=== PATIENT | male | born 2000 | race Caucasian/White ===

== ENCOUNTER 2022-06-10 00:26 | Emergency (ER) | payer OTHER ==
[~2022-06-10] VITALS: Ht 177.8 cm; Wt 68.0 kg
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
--- NOTE | 2022-06-10 01:51 | NUR ---
PT TAKEN TO CT VIA [facility]
--- NOTE | 2022-06-10 04:17 | NUR ---
Patient discharged to home in stable condition. Written and verbal after care instructions given. Patient verbalizes understanding of instruction. pt ambulatory with a steady gait
[2022-06-10 04:19] VITALS: BP 102/84
== END 2022-06-10 04:19 | disposition home or self-care (01) ==
LOC: ER 00:33
DX: S09.90XA Unspecified injury of head, initial encounter (principal); F07.81 Postconcussional syndrome; Y08.89XA Assault by other specified means, initial encounter; Y93.89 Activity, other specified; Y92.89 Other specified places as the place of occurrence of the external cause; Y99.8 Other external cause status
CPT/HCPCS: 70450-TC